=== PATIENT | female | born 1940 | race Hispanic/Latino ===

== ENCOUNTER → 2025-07-30 | Outpatient (CLI) | payer MEDICARE ==
[~2025-07-30] MED LIST: IOHEXOL-350 75 ML VIAL IV ONE
--- NOTE | 2025-07-30 12:52 | HMCIMG ---
EXAMINATION: CTA Head and Neck With Intravenous Contrast. HISTORY: Occlusion and stenosis of unspecified carotid artery. TECHNIQUE: Axial CTA images of the head and neck obtained during the arterial phase following intravenous contrast administration. Coronal and sagittal reformatted images, as well as 3D reconstructions, were reviewed. NASCET criteria were used to assess carotid stenosis. Total contrast administered: 74 mL iodinated contrast, followed by 100 mL saline flush. Injection performed at 3.5 mL/s, with a pressure limit of [address] dose parameters: CTDIvol (Body): 79.3 mGy; DLP (Body): 436.3 mGy???cm. CONTRAST: Contrast injected without incident. COMPARISON: None available. FINDINGS: AORTIC ARCH: Calcific atherosclerotic changes noted along the aortic arch. CAROTID ARTERIES: Calcified atherosclerotic plaques present in both carotid bulbs. Right carotid bulb: Approximately 20% luminal stenosis. Left carotid bulb: Severe (80???90%) stenosis extending into the proximal internal carotid artery (ICA). No occlusion or aneurysm. VERTEBRAL ARTERIES: Right vertebral artery is hypoplastic. Left vertebral artery dominant and patent. No dissection or aneurysm. INTRACRANIAL ARTERIES: Mild calcific atherosclerotic changes involving cavernous and supraclinoid segments of bilateral ICAs. Anterior, middle, and posterior cerebral arteries patent without significant stenosis, occlusion, or aneurysm. BASILAR ARTERY: Patent with no stenosis or aneurysm. IMPRESSION: * Severe (80???90%) calcified atherosclerotic stenosis at the left carotid bulb extending into proximal ICA. * Mild (?20%) stenosis at the right carotid bulb. * Hypoplastic right vertebral artery; dominant left vertebral artery patent. * Mild calcific atherosclerosis involving cavernous and supraclinoid ICAs bilaterally. * No intracranial occlusion or aneurysm. /[place]
== END | disposition home or self-care (01) ==
LOC: RAH 07:39
PROVIDERS: ATTEND Internal Medicine
DX: I65.23 Occlusion and stenosis of bilateral carotid arteries (principal); I70.0 Atherosclerosis of aorta; Q27.8 Other specified congenital malformations of peripheral vascular system
CPT/HCPCS: 70496; 70498; Q9967